=== PATIENT | male | born 1975 | race Caucasian/White ===

== ENCOUNTER 2018-04-13 13:05 | Emergency (ER) | payer OTHER ==
[~2018-04-13] VITALS: Ht 177.8 cm; Wt 113.3 kg
[2018-04-13 13:21] VITALS: BP 152/100
[2018-04-13] MEDS ORDERED: KETOROLAC 60 MG/2 ML VIAL. IM ONE (13:45)
[2018-04-13] MEDS ORDERED: PRED50TA PO (14:04)
[2018-04-13] MEDS ORDERED: IBUP800T19 PO (14:04)
[2018-04-13] MEDS ORDERED: HYDR-3165 PO (14:04)
--- NOTE | 2018-04-13 14:04 | PHYS DOC ---
Past History Past Medical History: Asthma Past Surgical History: No Surgical History Alcohol Use: Occasionally Drug Use: None Adult General Chief Complaint Chief Complaint: UPPER EXTREMITY PAIN HPI HPI Patient is a 42 year old right handed male who presents with of left shoulder pain. Patient complaining of left shoulder pain since last night as a constant and sharp pain without change with activity and rated his pain 8/10. Patient denies injury, focal neuro deficit, weakness. 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 Review of Systems Review of Systems Constitutional: Denies fever or chills [] Eyes: Denies change in visual acuity, redness, or eye pain [] HENT: Denies nasal congestion or sore throat [] Respiratory: Denies cough or shortness of breath [] Cardiovascular: No additional information not addressed in HPI [] GI: Denies abdominal pain, nausea, vomiting, bloody stools or diarrhea [] : Denies dysuria or hematuria [] Musculoskeletal: Denies back pain, reports joint pain [] Integument: Denies rash or skin lesions [] Neurologic: Denies headache, focal weakness or sensory changes [] Endocrine: Denies polyuria or polydipsia [] All other systems were reviewed and found to be within normal limits, except as documented in this note. Current Medications Current Medications Current Medications Medications (Trade) Dose Ordered Sig/[facility] Start Time Stop Time Status Last Admin Dose Admin Ketorolac Tromethamine (Toradol Im) 60 mg 1X ONCE 04/13/18 13:45 04/13/18 13:47 DC 04/13/18 13:41 60 MG Allergies Allergies Allergies Coded Allergies Type Severity Reaction Last Updated Verified No Known Drug Allergies 04/13/18 No Physical Exam Physical Exam Constitutional: Well developed, well nourished, mild distress, non-toxic appearance. [] HENT: Normocephalic, atraumatic. [] Eyes: PERRLA, EOMI, conjunctiva normal, no discharge. [] Neck: Normal range of motion, no tenderness, supple, no stridor. [] Cardiovascular:Heart rate regular rhythm, no murmur [] Lungs & Thorax: Bilateral breath sounds clear to auscultation [] Skin: Warm, dry, no erythema, no rash. [] Back: No tenderness, no CVA tenderness. [] Extremities: Left shoulder without deformity or atrophy, generalized pain without change with movement of shoulder, no neurovascular deficit, no cyanosis , no clubbing, ROM intact, no edema. Right shoulder with atrophic deltoid muscle.[] Neurologic: Alert and oriented X 3, normal motor function, normal sensory function, no focal deficits noted. [] Psychologic: Affect normal, judgement normal, mood normal. [] Current Patient Data Vital Signs Vital Signs Date Time Temp Pulse Resp B/P (MAP) Pulse Ox O2 Delivery O2 Flow Rate FiO2 04/13/18 13:21 96.4 74 16 99 Room Air EKG EKG [] Radiology/Procedures Radiology/Procedures [] Course & Med Decision Making Course & Med Decision Making Evaluation of patient in ER showed 42-year-old male patient with complaining of sudden onset of left shoulder pain since yesterday that did not get better with Advil. 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 Patient had a dose of Toradol in ER and prescription for hydrocodone, ibuprofen 800 mg and prednisone was given. Patient plan to be seen by her ball fringe machine operator next week. Patient informed to follow up with on-call neurologist tomorrow for possible EMG and more evaluation. Dragon Disclaimer Dragon Disclaimer This electronic medical record was generated, in whole or in part, using a voice recognition dictation system. Departure Departure: Impression: Primary Impression: Acute pain of left shoulder Additional Impression: Parsonage-Oseguera syndrome Disposition: 01 HOME, SELF-CARE (at 1355) Condition: IMPROVED Referrals: [facility] (PCP) MARCUS MCCRAY MD Patient Instructions: Shoulder Pain Additional Instructions: Follow-up with your ball fringe machine operator or on-call neurologist in 2-3 days Apply ice on the affected area Return to emergency room if not getting better Scripts Prednisone (PREDNISONE) 50 Mg Tablet 1 TAB PO DAILY for inflammation, #5 TAB Prov: CRISTY CUADRA MD 04/13/18 Hydrocodone Bit/Acetaminophen (NORCO 5-325 TABLET) 1 Each Tablet 1 TAB PO PRN Q6HRS PRN for PAIN, #20 TAB 0 Refills Prov: CRISTY CUADRA MD 04/13/18 Ibuprofen (IBUPROFEN) 800 Mg Tablet 1 TAB PO TID for pain, #30 TAB Prov: CRISTY CUADRA MD 04/13/18 Problem Qualifiers CRISTY CUADRA MD Apr 13, 2018 14:04
== END 2018-04-13 14:05 | disposition home or self-care (01) ==
LOC: ER 13:05
DX: M25.512 Pain in left shoulder (principal); G54.5 Neuralgic amyotrophy; J45.909 Unspecified asthma, uncomplicated
CPT/HCPCS: 96372; 99283; J1885